=== PATIENT | male | born 1955 | race Two or more races ===

== ENCOUNTER → 2017-04-10 | Outpatient (REF) | payer OTHER ==
[~2017-04-10] MED LIST: LISI10TA2 PO; VITMTA PO; WARF-23 PO
[2017-04-10 12:31] LABS: INR 3.25
== END ==
LOC: M SFHCPLAZ 09:41
PROVIDERS: ATTEND Physician Assistant
DX: Z51.81 Encounter for therapeutic drug level monitoring (principal); Z79.01 Long term (current) use of anticoagulants

== ENCOUNTER 2018-02-15 15:16 | Inpatient (IN) | payer MEDICARE ==
[2018-02-15] MEDS ORDERED: ONDANSETRON 4 MG TAB (S0181) PO (17:45)
[2018-02-15] MEDS ORDERED: SENNA 8.6 MG TAB (SENOKOT) PO (17:45)
[2018-02-15] MEDS: LACTULOSE 20 GM/30 ML SYRUP UD PO (20:48)
[2018-02-15] MEDS: AMITRIPTYLINE 25 MG TAB PO (20:48)
[2018-02-15] MEDS: DOCUSATE SODIUM 100 MG CAP PO (20:48)
[2018-02-15] MEDS: NAPROXEN 250 MG TAB PO (20:49)
[2018-02-15] MEDS: BACLOFEN 5MG PER 1/2 TABLET GT (20:49)
[2018-02-15] MEDS: GABAPENTIN 400 MG CAP PO (20:49)
[2018-02-15 21:26] LABS: APPEARANCE, URINE CLEAR (CLEAR); BACTERIA, URINE AUTO NEGATIVE (NEGATIVE); BILIRUBIN, URINE AUTO NEGATIVE (NEGATIVE); BLOOD, URINE BLOOD NEGATIVE (NEGATIVE); COLOR, URINE YELLOW (YELLOW); GLUCOSE, URINE (UA) AUTO 1+ mg/dL (NEGATIVE); KETONE, URINE AUTO NEGATIVE (NEGATIVE); LEUKOCYTE ESTERASE, URINE AUTO NEGATIVE (NEGATIVE); NITRITE, URINE AUTO NEGATIVE (NEGATIVE); PROTEIN, URINE AUTO NEGATIVE (NEGATIVE); RBC, URINE AUTO 0 /HPF (0-3); SPECIFIC GRAVITY URINE AUTO 1.009 (1.002-1.035); SQUAMOUS EPITHELIAL CELL UR AU 0 /HPF (0-6); UROBILINOGEN, URINE AUTO 0.2 mg/dL (0.0-2.0); WBC, URINE AUTO 0 /HPF (0-3)
[2018-02-16] MEDS: BISACODYL 10 MG SUPP PR (04:45)
[2018-02-16] MEDS: PANTOPRAZOLE 40MG TAB (PROTONIX) PO (08:47)
[2018-02-16] MEDS: DOCUSATE SODIUM 100 MG CAP PO ×2 (08:47→21:07)
[2018-02-16] MEDS: hydroCHLOROthiazide 12.5 MG CAPSULE PO (08:48)
[2018-02-16] MEDS: NAPROXEN 250 MG TAB PO ×2 (08:48→21:09)
[2018-02-16] MEDS: GABAPENTIN 400 MG CAP PO ×3 (08:49→21:09)
[2018-02-16] MEDS: LISINOPRIL 10 MG TAB PO (08:49)
[2018-02-16] MEDS: ACETAMINOPHEN TAB 650MG DOSE (2X325MG) PO (11:50)
[2018-02-16 12:56] LABS: BASO % 0.3 % (0.0-1.0); EOS # 0.2 10^3/uL (0.0-0.50); EOS % 1.5 % (0.0-3.0); HEMATOCRIT 28.7 % (42.0-52.0); HEMOGLOBIN 9.5 g/dl (13.5-17.5); IMMATURE GRANULOCYTE % 0.8 % (0-3.0); LYMPH # 1.4 10^3/uL (1.5-4.5); LYMPH % 12.1 % (24.0-44.0); MEAN CORPUSCULAR HEMOGLOBIN 32.3 pg (27.0-33.0); MEAN CORPUSCULAR HGB CONC 33.1 g/dl (32.0-36.5); MEAN CORPUSCULAR VOLUME 97.6 fl (80.0-96.0); MONO # 0.9 10^3/uL (0.0-0.8); MONO % 7.8 % (0.0-5.0); NEUTROPHILS % 77.5 % (36.0-66.0); PLATELET COUNT, AUTOMATED 211 10^3/uL (150-450); RED BLOOD COUNT 2.94 10^6/uL (4.30-6.10); RED CELL DISTRIBUTION WIDTH 12.9 % (11.5-14.5); WHITE BLOOD COUNT 11.7 10^3/uL (4.0-10.0)
[2018-02-16 13:26] LABS: ALBUMIN 2.9 GM/DL (3.2-5.2); ALBUMIN/GLOBULIN RATIO 0.91 (1.00-1.93); ALKALINE PHOSPHATASE 43 U/L (45-117); ALT/SGPT 16 U/L (12-78); ANION GAP 9 MEQ/L (8-16); AST/SGOT 14 U/L (7-37); BILIRUBIN,TOTAL 0.3 MG/DL (0.2-1.0); BLOOD UREA NITROGEN 19 MG/DL (7-18); CALCIUM LEVEL 8.2 MG/DL (8.8-10.2); CARBON DIOXIDE LEVEL 28 MEQ/L (21-32); CHLORIDE LEVEL 107 MEQ/L (98-107); CREATININE FOR GFR 0.83 MG/DL (0.70-1.30); GLOMERULAR FILTRATION RATE > 60.0 (>49); GLUCOSE, FASTING 101 MG/DL (70-100); POTASSIUM SERUM 3.6 MEQ/L (3.5-5.1); SODIUM LEVEL 144 MEQ/L (136-145); TOTAL PROTEIN 6.1 GM/DL (6.4-8.2)
[2018-02-16] MEDS: AMITRIPTYLINE 25 MG TAB PO (21:07)
[2018-02-17] MEDS: GABAPENTIN 400 MG CAP PO ×3 (09:56→20:23)
[2018-02-17] MEDS: NAPROXEN 250 MG TAB PO ×2 (09:57→20:24)
[2018-02-17] MEDS: DOCUSATE SODIUM 100 MG CAP PO ×2 (09:57→20:24)
[2018-02-17] MEDS: LISINOPRIL 10 MG TAB PO (09:57)
[2018-02-17] MEDS: hydroCHLOROthiazide 12.5 MG CAPSULE PO (09:58)
[2018-02-17] MEDS: PANTOPRAZOLE 40MG TAB (PROTONIX) PO (09:58)
[2018-02-17] MEDS: ACETAMINOPHEN TAB 650MG DOSE (2X325MG) PO (10:00)
[2018-02-17] MEDS: BACTRIM 160MG/800MG DS TAB PO ×2 (12:58→20:24)
[2018-02-17] MEDS: AMITRIPTYLINE 25 MG TAB PO (20:24)
[2018-02-18] MEDS: ACETAMINOPHEN TAB 650MG DOSE (2X325MG) PO ×2 (09:17→21:41)
[2018-02-18] MEDS: DOCUSATE SODIUM 100 MG CAP PO ×2 (09:18→21:40)
[2018-02-18] MEDS: GABAPENTIN 400 MG CAP PO ×3 (09:18→21:40)
[2018-02-18] MEDS: NAPROXEN 250 MG TAB PO ×2 (09:18→21:41)
[2018-02-18] MEDS: BACTRIM 160MG/800MG DS TAB PO ×2 (09:19→21:40)
[2018-02-18] MEDS: PANTOPRAZOLE 40MG TAB (PROTONIX) PO (09:19)
[2018-02-18] MEDS: LISINOPRIL 10 MG TAB PO (09:19)
[2018-02-18] MEDS: hydroCHLOROthiazide 12.5 MG CAPSULE PO (09:19)
[2018-02-18] MEDS: AMITRIPTYLINE 50 MG TAB PO (21:40)
[2018-02-19] MEDS: BACLOFEN 5MG PER 1/2 TABLET GT ×2 (01:34→14:38)
[2018-02-19] MEDS: ACETAMINOPHEN TAB 650MG DOSE (2X325MG) PO ×3 (01:34→14:39)
[2018-02-19] MEDS: BACTRIM 160MG/800MG DS TAB PO ×2 (09:24→20:04)
[2018-02-19] MEDS: hydroCHLOROthiazide 12.5 MG CAPSULE PO (09:25)
[2018-02-19] MEDS: PANTOPRAZOLE 40MG TAB (PROTONIX) PO (09:25)
[2018-02-19] MEDS: GABAPENTIN 400 MG CAP PO ×3 (09:25→20:05)
[2018-02-19] MEDS: DOCUSATE SODIUM 100 MG CAP PO ×2 (09:25→20:04)
[2018-02-19] MEDS: LISINOPRIL 10 MG TAB PO (09:25)
[2018-02-19] MEDS: NAPROXEN 250 MG TAB PO ×2 (09:26→20:05)
[2018-02-19] MEDS: AMITRIPTYLINE 50 MG TAB PO (20:05)
[2018-02-20] MEDS: LISINOPRIL 10 MG TAB PO (09:00)
[2018-02-20] MEDS: hydroCHLOROthiazide 12.5 MG CAPSULE PO (09:38)
[2018-02-20] MEDS: GABAPENTIN 400 MG CAP PO ×3 (09:38→22:38)
[2018-02-20] MEDS: DOCUSATE SODIUM 100 MG CAP PO ×2 (09:39→22:36)
[2018-02-20] MEDS: BACTRIM 160MG/800MG DS TAB PO ×2 (09:39→22:20)
[2018-02-20] MEDS: PANTOPRAZOLE 40MG TAB (PROTONIX) PO (09:39)
[2018-02-20] MEDS: NAPROXEN 250 MG TAB PO ×2 (09:39→22:37)
[2018-02-20] MEDS ORDERED: BISACODYL 10 MG SUPP PR (12:15)
[2018-02-20] MEDS: ACETAMINOPHEN TAB 650MG DOSE (2X325MG) PO (13:17)
[2018-02-20] MEDS: AMITRIPTYLINE 50 MG TAB PO (22:37)
[2018-02-21 07:42] LABS: BASO % 0.4 % (0.0-1.0); EOS # 0.6 10^3/uL (0.0-0.50); EOS % 8.8 % (0.0-3.0); HEMATOCRIT 34.5 % (42.0-52.0); HEMOGLOBIN 11.4 g/dl (13.5-17.5); LYMPH # 1.3 10^3/uL (1.5-4.5); LYMPH % 17.8 % (24.0-44.0); MEAN CORPUSCULAR HEMOGLOBIN 32.2 pg (27.0-33.0); MEAN CORPUSCULAR VOLUME 97.5 fl (80.0-96.0); MONO # 0.7 10^3/uL (0.0-0.8); MONO % 9.6 % (0.0-5.0); NEUTROPHILS # 4.4 10^3/uL (1.8-7.7); NEUTROPHILS % 59.4 % (36.0-66.0); PLATELET COUNT, AUTOMATED 311 10^3/uL (150-450); RED BLOOD COUNT 3.54 10^6/uL (4.30-6.10); WHITE BLOOD COUNT 7.3 10^3/uL (4.0-10.0)
[2018-02-21 08:04] LABS: ANION GAP 3 MEQ/L (8-16); BLOOD UREA NITROGEN 19 MG/DL (7-18); CALCIUM LEVEL 8.7 MG/DL (8.8-10.2); CARBON DIOXIDE LEVEL 29 MEQ/L (21-32); CHLORIDE LEVEL 107 MEQ/L (98-107); CREATININE FOR GFR 1.27 MG/DL (0.70-1.30); GLOMERULAR FILTRATION RATE > 60.0 (>49); GLUCOSE, FASTING 90 MG/DL (70-100); POTASSIUM SERUM 5.3 MEQ/L (3.5-5.1); SODIUM LEVEL 139 MEQ/L (136-145)
[2018-02-21] MEDS: DOCUSATE SODIUM 100 MG CAP PO ×2 (08:34→20:57)
[2018-02-21] MEDS: NAPROXEN 250 MG TAB PO ×2 (08:37→20:58)
[2018-02-21] MEDS: GABAPENTIN 400 MG CAP PO ×3 (08:37→20:58)
[2018-02-21] MEDS: hydroCHLOROthiazide 12.5 MG CAPSULE PO (08:38)
[2018-02-21] MEDS: LISINOPRIL 10 MG TAB PO (08:38)
[2018-02-21] MEDS: BACTRIM 160MG/800MG DS TAB PO ×2 (08:39→20:58)
[2018-02-21] MEDS: PANTOPRAZOLE 40MG TAB (PROTONIX) PO (08:39)
[2018-02-21] MEDS: SOD POLYSTYRENE SULFONATE SUSP 15 GM/60 ML UD PO (12:15)
[2018-02-21] MEDS: AMITRIPTYLINE 50 MG TAB PO (20:58)
[2018-02-22 07:48] LABS: ANION GAP 6 MEQ/L (8-16); BLOOD UREA NITROGEN 23 MG/DL (7-18); CALCIUM LEVEL 8.5 MG/DL (8.8-10.2); CARBON DIOXIDE LEVEL 28 MEQ/L (21-32); CHLORIDE LEVEL 106 MEQ/L (98-107); CREATININE FOR GFR 1.22 MG/DL (0.70-1.30); GLOMERULAR FILTRATION RATE > 60.0 (>49); GLUCOSE, FASTING 88 MG/DL (70-100); POTASSIUM SERUM 4.5 MEQ/L (3.5-5.1); SODIUM LEVEL 140 MEQ/L (136-145)
[2018-02-22] MEDS: GABAPENTIN 400 MG CAP PO (08:13)
[2018-02-22] MEDS: PANTOPRAZOLE 40MG TAB (PROTONIX) PO (08:13)
[2018-02-22] MEDS: hydroCHLOROthiazide 12.5 MG CAPSULE PO (08:13)
[2018-02-22] MEDS: NAPROXEN 250 MG TAB PO (08:14)
[2018-02-22] MEDS: BACTRIM 160MG/800MG DS TAB PO (08:14)
[2018-02-22] MEDS: DOCUSATE SODIUM 100 MG CAP PO (08:14)
== END 2018-02-22 12:00 | disposition home health service (06) | DRG 948 ==
LOC: M PM&R 15:16
DX: R53.81 Other malaise (principal); Z98.1 Arthrodesis status; I10 Essential (primary) hypertension; R20.0 Anesthesia of skin; E87.5 Hyperkalemia; R13.10 Dysphagia, unspecified; G57.93 Unspecified mononeuropathy of bilateral lower limbs; K59.00 Constipation, unspecified; Z86.718 Personal history of other venous thrombosis and embolism; Z79.82 Long term (current) use of aspirin; Z79.899 Other long term (current) drug therapy

== ENCOUNTER → 2018-07-01 | Outpatient (REF) | payer MEDICARE ==
[~2018-07-01] MED LIST changes: +AMIT50TA PO; +ASPI1TAB PO; +BACL10TA2 GT; +BISA10SU PR; +COLA100C5 PO; +GABA-845 PO; +GABA600T4 PO; +HYDR12CA PO; +NAPR-885 PO; +NUTRPOW11 PO; +PANT40TA3 PO; +SENN18TA PO; +SULF1TAB93 PO
== END ==
LOC: M SFHCLERA 09:43
PROVIDERS: ATTEND Nurse Practitioner Family
DX: R53.81 Other malaise (principal)